=== PATIENT | male | born 1960 | race Caucasian/White ===

== ENCOUNTER 2024-06-12 10:38 | Outpatient (CLI) | payer OTHER | END 2024-06-12 23:59 | disposition home or self-care (01) | LOC: MRI02 10:38 | PROVIDERS: ATTEND Specialist | DX: S46.112A Strain of muscle, fascia and tendon of long head of biceps, left arm, initial encounter (principal); M75.102 Unspecified rotator cuff tear or rupture of left shoulder, not specified as traumatic; M65.812 Other synovitis and tenosynovitis, left shoulder; M25.412 Effusion, left shoulder; M19.012 Primary osteoarthritis, left shoulder; M25.512 Pain in left shoulder; M89.312 Hypertrophy of bone, left shoulder; X58.XXXA Exposure to other specified factors, initial encounter; Y93.89 Activity, other specified; Y92.89 Other specified places as the place of occurrence of the external cause; Y99.8 Other external cause status | CPT/HCPCS: 73221 ==

== ENCOUNTER 2024-09-03 11:55 | Outpatient (CLI) | payer OTHER ==
--- NOTE | 2024-09-03 15:40 | RADIOLOGY REPORT ---
CLINICAL INFORMATION: Pre-surgical planning. Osteoarthritis. Biomet protocol CT. TECHNIQUE: Axial CT images of the left shoulder were obtained without IV contrast per [employer] protocol for preoperative planning purposes.. Coronal and sagittal reformatted images were obtained, reviewed , and stored. Coronal and sagittal reformatted images were not aligned with the plane of the scapula, limiting evaluation. All CT scans at this medical facility are performed using dose modulation tech niques as appropriate to a performed exam including the following: Automated exposure control was uti lized; adjustment of the MA and/or KV according to patient size; and use of iterative reconstruction technique. CTDIvol = 22.8 mGy DLP = 517.82 mGy-cm COMPARISON: MRI dated 06/12/2024 FINDINGS: No acute fracture. Severe osteoarthritic changes in the glenohumeral joint with joint space narrowing, subchondral sclerosis, subchondral cystic change, and marginal osteophytes. There is appr oximately 6.5 degrees glenoid retroversion. Prominent osteophyte of the inferomedial aspect of the hu meral head. There is adjacent ossification more caudally, with broad-based attachment to the medial c ortex of the proximal humeral diaphysis (but no medullary continuity to suggest osteochondroma), with the ossification measuring up to 2.9 x 1.5 x 1.5 cm, abutting but not contiguous with the adjacent o steophyte of the inferomedial aspect of the humeral head. There is a loose body in the subscapularis recess measuring up to 1.2 cm. Small 0.4 cm loose body along the posterior superior aspect of the gle nohumeral joint. Type 1 acromion. Small chronic ossific densities are seen adjacent to the anterior a spect of the acromion. Chronic appearing deformity of the distal clavicle may be sequelae of prior po stsurgical changes. Postsurgical changes are seen of the level of the bicipital groove, possible prio r tenodesis. Visualized musculature appears grossly unremarkable. Emphysematous changes are seen in t he visualized portions of the left lung. IMPRESSION: 1. Severe arthritic changes in the left shoulder. 2. Loose body in the subscapularis recess and small loose body of the posterosuperior aspect of the g lenohumeral joint. 3. Prominent ossification/exostosis along the medial cortex of the proximal humeral diaphysis, abutti ng an osteophyte at the inferomedial aspect of the humeral head as detailed above. 4. Additional findings as detailed above.
== END 2024-09-03 23:59 | disposition home or self-care (01) ==
LOC: RAD 11:55
PROVIDERS: ATTEND Specialist
DX: M19.012 Primary osteoarthritis, left shoulder (principal); M25.512 Pain in left shoulder; M24.012 Loose body in left shoulder
CPT/HCPCS: 73200